=== PATIENT | female | born 1980 | race Caucasian/White ===

== ENCOUNTER 2023-01-13 08:46 | Day surgery (SDC) | payer OTHER ==
[~2023-01-13] VITALS: Ht 170.2 cm; Wt 65.8 kg
[2023-01-13] MEDS ORDERED: fentaNYL citrate 0.05 MG/ML VIAL ONE (09:29)
[2023-01-13] MEDS ORDERED: MIDAZOLAM 2 MG/2 ML VIAL ONE (09:30)
[2023-01-13] MEDS ORDERED: LIDOCAINE 2% 100 MG/5 ML UJET TP ONE (09:30)
[2023-01-13] MEDS ORDERED: MIDAZOLAM 5 MG/5 ML VIAL ONE (09:50)
[2023-01-13] MEDS ORDERED: fentaNYL citrate 0.05 MG/ML VIAL IVP ONE (10:20)
[2023-01-13] MEDS ORDERED: MIDAZOLAM 2 MG/2 ML VIAL IVP ONE (10:20)
== END 2023-01-13 12:10 | disposition home or self-care (01) ==
LOC: MDS 08:46 → MMU 08:47 → MDS 12:10
PROVIDERS: ATTEND Internal Medicine Gastroenterology
DX: K70.10 Alcoholic hepatitis without ascites (principal); I85.10 Secondary esophageal varices without bleeding; F17.210 Nicotine dependence, cigarettes, uncomplicated; F41.9 Anxiety disorder, unspecified; Z80.3 Family history of malignant neoplasm of breast; Z88.0 Allergy status to penicillin; Z79.899 Other long term (current) drug therapy
CPT/HCPCS: 45330; 45350; J2250; J3010

== ENCOUNTER 2024-04-29 10:03 | Day surgery (SDC) | payer OTHER ==
[~2024-04-29] VITALS: Ht 170.2 cm; Wt 72.6 kg
[2024-04-29] MEDS ORDERED: MIDAZOLAM 2 MG/2 ML VIAL ONE (11:29)
[2024-04-29] MEDS ORDERED: fentaNYL citrate 0.05 MG/ML VIAL ONE (11:29)
[2024-04-29] MEDS: MIDAZOLAM 2 MG/2 ML VIAL IV ONE (11:40)
== END 2024-04-29 13:17 | disposition home or self-care (01) ==
LOC: MDS 10:03 → MMU 10:04 → MDS 13:17
PROVIDERS: ATTEND Internal Medicine Gastroenterology
DX: K70.30 Alcoholic cirrhosis of liver without ascites (principal); K44.9 Diaphragmatic hernia without obstruction or gangrene; K76.6 Portal hypertension; Z88.0 Allergy status to penicillin; Z79.899 Other long term (current) drug therapy; Z98.890 Other specified postprocedural states
CPT/HCPCS: 43235; J2250; J3010